=== PATIENT | male | born 1995 | race Caucasian/White ===

== ENCOUNTER 2017-04-27 02:23 | Emergency (ER) | payer OTHER ==
[~2017-04-27] VITALS: Ht 172.7 cm; Wt 63.0 kg
[2017-04-27 02:28] VITALS: TEMP 37.2; Ht 172.7 cm; Wt 63.0 kg
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
[2017-04-27] MEDS ORDERED: LIDOCAINE/EPINEPHRINE 1% 20 ML VIAL INFIL ONE (02:45)
[2017-04-27 04:19] VITALS: BP 130/78; PULSE 120; O2SAT 100
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
== END 2017-04-27 04:22 | disposition home or self-care (01) ==
LOC: C.EDB 02:26
DX: S01.01XA Laceration without foreign body of scalp, initial encounter (principal); Y04.0XXA Assault by unarmed brawl or fight, initial encounter